=== PATIENT | female | born 1985 | race African-American/Black ===

== ENCOUNTER 2021-11-01 15:14 | Emergency (ER) | payer MEDICAID ==
[~2021-11-01] VITALS: Ht 182.9 cm; Wt 86.4 kg
[2021-11-01 16:56] LABS: COVID AG,FIA SOURCE NASOPHARYNGEAL
[2021-11-01] MEDS ORDERED: BENZ-70 PO (17:24)
[2021-11-01] MEDS ORDERED: PROM118S5 PO (17:24)
[2021-11-01 17:46] VITALS: BP 132/87
== END 2021-11-01 17:47 | disposition home or self-care (01) ==
LOC: EMS 15:22
DX: J20.9 Acute bronchitis, unspecified (principal); F17.210 Nicotine dependence, cigarettes, uncomplicated; Z20.822 Contact with and (suspected) exposure to COVID-19
CPT/HCPCS: 99283